=== PATIENT | male | born 1945 | race Two or more races ===

== ENCOUNTER 2019-12-14 16:52 | Inpatient (IN) | payer OTHER, MEDICAID ==
[~2019-12-14] VITALS: Ht 162.6 cm; Wt 73.9 kg
[2019-12-14] MEDS ORDERED: ONDANSETRON HCL 4 MG/2 ML VIAL IV ONE (18:45)
[2019-12-14] MEDS ORDERED: SODIUM CHLORIDE 0.9% 1,000 ML IV ONE (18:45)
[2019-12-14 20:22] LABS: Urine Bacteria FEW /hpf (None Seen); Urine Blood Negative /uL (Negative); Urine Specific Gravity 1.012 (1.001-1.035); Urine WBC 9 /hpf (0 - 3)
[2019-12-14 20:32] LABS: Basophils # (auto) 0 10 ^3/uL (0-0.2); Basophils % (auto) 1.1 % (0.0-2.0); Eosinophils # (auto) 0.1 10 ^3/uL (0-0.8); Eosinophils % (auto) 3.9 % (0.0-7.0); Hemoglobin 12.2 g/dL (13.5-17.5); Lymphocytes # (auto) 0.3 10 ^3/uL (0.4-5.4); Lymphocytes % (auto) 10.9 % (10.0-50.0); Mean Corpuscular Hemoglobin 33.5 pg (28.0-32.0); Mean Corpuscular Hgb Conc. 33.9 g/dL (32.0-36.0); Mean Corpuscular Volume 98.8 fL (80.0-100.0); Monocytes # (auto) 0.2 10 ^3/uL (0-1.3); Monocytes % (auto) 5.8 % (0.0-12.0); Neutrophils # (auto) 2.3 10 ^3/uL (1.6-8.6); Neutrophils % (auto) 78.3 % (37.0-80.0); Nucleated Red Blood Cells % 0.1 %; Platelet Count (auto) 84 10^3/uL (140-450); Red Blood Cells 3.64 10^6/uL (4.5-5.90); Red Cell Distribution Width 12.7 % (11.8-14.3); White Blood Cell 2.9 10^3/uL (4.4-10.8)
[2019-12-14 20:48] LABS: Albumin 3.8 g/dL (3.4-5.0); Calcium 8.1 mg/dL (8.5-10.1); Potassium 5.3 mmol/L (3.5-5.1)
[2019-12-14 20:51] LABS: BUN/Creatinine Ratio 13.8; Bilirubin, Total 0.5 mg/dL (0.2-1.0); Total Protein 8.2 g/dL (6.4-8.2)
[2019-12-15] MEDS ORDERED: CALCIUM GLUC 4.65meq/50ml D5AE 50 ML IV ONE (09:30)
[2019-12-15] MEDS ORDERED: SODIUM ZIRCONIUM CYCL 10 GM PAK PO ONE (09:30)
[2019-12-15] MEDS ORDERED: ALBUTEROL SULF 2.5 MG/0.5ML(0.5%) NEB SOLN NEB ONE (09:30)
[2019-12-15] MEDS ORDERED: InsuLIN REG 1unit/0.01ml Soln (100units/ml) IV ONE (09:30)
[2019-12-15] MEDS ORDERED: FUROSEMIDE 20 MG/2 ML VIAL IV ONE (09:30)
[2019-12-15] MEDS ORDERED: DEXTROSE (50%) 50ML SYRG IV ONE (09:30)
[2019-12-15] MEDS ORDERED: ONDANSETRON HCL 4 MG/2 ML VIAL IV PRN (09:45)
[2019-12-15] MEDS ORDERED: MORPHINE SULF INJ 2 MG/ML SYRINGE 1ML IV PRN (09:45)
[2019-12-15] MEDS ORDERED: SODIUM CHLORIDE 0.9% 1,000 ML IV ONE ×2 (09:45→22:15)
[2019-12-15] MEDS ORDERED: NITROGLYCERIN 0.4 MG SL TAB SL PRN (09:45)
[2019-12-15 10:32] LABS: Basophils # (auto) 0.1 10 ^3/uL (0-0.2); Basophils % (auto) 1.8 % (0.0-2.0); Eosinophils # (auto) 0.3 10 ^3/uL (0-0.8); Hematocrit 34.6 % (41.0-53.0); Hemoglobin 11.6 g/dL (13.5-17.5); Lymphocytes # (auto) 0.3 10 ^3/uL (0.4-5.4); Lymphocytes % (auto) 10.8 % (10.0-50.0); Mean Corpuscular Hemoglobin 33.4 pg (28.0-32.0); Mean Corpuscular Hgb Conc. 33.6 g/dL (32.0-36.0); Mean Corpuscular Volume 99.6 fL (80.0-100.0); Monocytes # (auto) 0.3 10 ^3/uL (0-1.3); Monocytes % (auto) 8.4 % (0.0-12.0); Neutrophils # (auto) 2.1 10 ^3/uL (1.6-8.6); Nucleated Red Blood Cells % 0.1 %; Platelet Count (auto) 75 10^3/uL (140-450); Red Blood Cells 3.47 10^6/uL (4.5-5.90); Red Cell Distribution Width 12.8 % (11.8-14.3); White Blood Cell 3.1 10^3/uL (4.4-10.8)
[2019-12-15] MEDS: SODIUM BICARBONATE 50ML VIAL 50 ML in D5W/SOD CHL 0.45% 1,000 ML IV SCH ×3 (10:42→22:47)
[2019-12-15 10:46] LABS: INR 1.22 (0.9-1.15); Partial Thromboplastin Time 31.8 sec (23.0-31.2)
[2019-12-15 10:49] LABS: Albumin 3.5 g/dL (3.4-5.0); Calcium 8.2 mg/dL (8.5-10.1); Magnesium 2.9 mg/dL (1.6-2.6); Potassium 5.4 mmol/L (3.5-5.1)
[2019-12-15 10:52] LABS: Bilirubin, Total 0.5 mg/dL (0.2-1.0); Total Protein 7.6 g/dL (6.4-8.2)
[2019-12-15 10:57] LABS: Amylase 111 U/L (25-115); Lipase 833 U/L (73-393)
[2019-12-15 10:59] LABS: Sodium Urine 71 mmol/L (40-220)
[2019-12-15 11:01] LABS: Protein, Urine 31.5 mg/dL (0.0-11.9)
[2019-12-15 11:02] LABS: Creatinine, Urine 108 mg/dL (30.0-125.0)
[2019-12-15 11:08] LABS: BUN/Creatinine Ratio 20.4
[2019-12-15 11:11] LABS: Uric Acid 17.4 mg/dL (3.5-7.2)
[2019-12-15 11:32] LABS: Phosphorus 9.6 mg/dL (2.5-4.90)
[2019-12-15] MEDS ORDERED: VANCOMYCIN PER PHARMACY 0 MG IV SCH (11:45)
[2019-12-15] MEDS ORDERED: VANCOMYCIN 1GM/250ML 250 ML IV ONE (11:45)
[2019-12-15] MEDS ORDERED: NOREPINEPHRINE 8 MG/250ML KIT 250 ML IV ONE (12:21)
[2019-12-15] MEDS: NOREPINEPHRINE 8 MG/250ML KIT 250 ML IV SCH (12:27)
[2019-12-15 12:53] LABS: Lactic Acid w/Reflex 2.3 mmol/L (0.4-2.0)
[2019-12-15] MEDS ORDERED: PIPERACILLIN-TAZOB 2.25GM 50 ML IV SCH (14:00)
[2019-12-15 14:17] LABS: Urine Bacteria MANY /hpf (None Seen); Urine Blood 2+ /uL (Negative); Urine Specific Gravity 1.013 (1.001-1.035); Urine WBC 4 /hpf (0 - 3)
[2019-12-15] MEDS: OCTREOTIDE ACETATE 100 MCG/ML VL SUBCUT SCH ×2 (14:21→22:46)
[2019-12-15] MEDS ORDERED: ERGOCALCIFEROL 50,000 UNIT(1.25MG) CAP PO SCH (21:30)
[2019-12-16] VITALS (48 sets, daily range): BP systolic 91–147; BP diastolic 38–80
--- NOTE | 2019-12-16 01:42 | NUR ---
CALLED ER FOR REPORT - ASSIGNED RN UNAVAILABLE AT THIS TIME
--- NOTE | 2019-12-16 02:30 | NUR ---
ICU ADMISSION: ADMITTED TO ICU. ASSESSMENT AND TRANSLATION ASSISTANCE PROVIDED BY CECILIA MEJIA. PATIENT PRIMARILY WELSH SPEAKING. A&OX4. NSR, HR 80s. NIBP > 100, MAP > 65 ON LEVOPHED GTT. LS CTA, EVEN AND UNLABORED BREATIHING. SpO2>95% ON RA. NO COUGH. ABD SOFT. HYPOACTIVE BS. LBM 10/20, NO DIARRHEA, NO BLOOD. REPORTS INTERMITTENT NAUSEA AND POOR APPETITE. MÁRQUEZ PATENT AND INTACT, DRAINING CLEAR YELLOW URINE. SKIN GROSSLY INTACT. 20 G PIV TO LEFT FOREARM, CDI AND PATENT BUT NO BLOOD RETURN, NO S/S OF INFILTRATION OR PHLEBITIS. 20 G PIV TO LEFT AC, CDI, AND PATENT WITH BLOOD RETURN, NO S/S OF INFILTRATION, EXTRAVASATION OR PHLEBITIS. DENIES CHEST PAIN, SHORTNESS OF BREATH, HEADACHE, DIZZINESS, NAUSEA/VOMITING, NUMBNESS AND TINGLING. REINFORCED POC. MAINTAINED PATIENT SAFETY: BED LOCKED AND IN THE LOWEST POSITION, FREQUENT VISUAL CHECKS, CALL LIGHT WITHIN REACH, BED ALARM ON.
[2019-12-16] MEDS ORDERED: SODIUM BICARBONATE 8.4 % INJ 50ML VIAL IV ONE (02:36)
[2019-12-16] MEDS: SODIUM BICARBONATE 50ML VIAL 50 ML in D5W/SOD CHL 0.45% 1,000 ML IV SCH ×2 (03:05→17:29)
--- NOTE | 2019-12-16 03:14 | NUR ---
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 WILL ENDORSE TO DAY SHIFT TO HAVE FAMILY COME TO PAYMENT MANAGER BELONGINGS. PATIENT'S BELONGINGS DOCUMENTED ON FORM IN CHART.
--- NOTE | 2019-12-16 04:15 | NUR ---
LEVOPHED GTT STOPPED
--- NOTE | 2019-12-16 04:30 | NUR ---
ROUNDED: SLEEPING. EVEN AND UNLABORED BREATHING. NO PAIN BEHAVIORS IDENTIFIED. NO SIGNS OF DISTRESS AT THIS TIME. VSS. WILL CONT CARE
[2019-12-16 04:39] LABS: Basophils # (auto) 0 10 ^3/uL (0-0.2); Basophils % (auto) 0.6 % (0.0-2.0); Eosinophils # (auto) 0 10 ^3/uL (0-0.8); Eosinophils % (auto) 0.8 % (0.0-7.0); Hematocrit 32.1 % (41.0-53.0); Hemoglobin 10.7 g/dL (13.5-17.5); Lymphocytes # (auto) 0.2 10 ^3/uL (0.4-5.4); Lymphocytes % (auto) 3.7 % (10.0-50.0); Mean Corpuscular Hemoglobin 33.3 pg (28.0-32.0); Mean Corpuscular Hgb Conc. 33.4 g/dL (32.0-36.0); Mean Corpuscular Volume 99.8 fL (80.0-100.0); Monocytes # (auto) 0.3 10 ^3/uL (0-1.3); Monocytes % (auto) 5.6 % (0.0-12.0); Neutrophils # (auto) 4.1 10 ^3/uL (1.6-8.6); Neutrophils % (auto) 89.3 % (37.0-80.0); Platelet Count (auto) 72 10^3/uL (140-450); Red Blood Cells 3.22 10^6/uL (4.5-5.90); Red Cell Distribution Width 12.6 % (11.8-14.3); White Blood Cell 4.6 10^3/uL (4.4-10.8)
[2019-12-16 05:05] LABS: Potassium 4.2 mmol/L (3.5-5.1)
[2019-12-16 05:16] LABS: Albumin 2.9 g/dL (3.4-5.0); BUN/Creatinine Ratio 29.2; Bilirubin, Direct 0.4 mg/dL (0-0.2); Bilirubin, Total 0.7 mg/dL (0.2-1.0); Calcium 7.4 mg/dL (8.5-10.1); Magnesium 1.8 mg/dL (1.6-2.6); Total Protein 6.4 g/dL (6.4-8.2)
[2019-12-16] MEDS: OCTREOTIDE ACETATE 100 MCG/ML VL SUBCUT SCH ×3 (05:34→21:30)
[2019-12-16 05:49] LABS: INR 1.37 (0.9-1.15); Partial Thromboplastin Time 35.9 sec (23.0-31.2)
--- NOTE | 2019-12-16 05:53 | NUR ---
ROUNDED: NO NEEDS AT THIS TIME. DENIES PAIN, CHEST PAIN, SHORTNESS OF BREATH, HEADACHE, DIZZINESS, N/V, NUMBNESS AND TINGLING. LEVOPHED CONTINUED OFF. VSS.
--- NOTE | 2019-12-16 07:29 | NUR ---
REPORT AND CARE ENDORSED TO CECILIA CHAUHAN
--- NOTE | 2019-12-16 07:30 | NUR ---
Open Assumed care of pt at this time. Pt alert and oriented times times four. Macedonian speaking mostly. Full assessment done see interventions. VSS. Will continue to monitor pt.
--- NOTE | 2019-12-16 10:51 | NUR ---
Faxed to [facility] [phone] order for Urgent Endocrinology referral as outpatient with in one week, spoke with Sarah [phone] and stated they received the clinical packet , and will give it to the CW
--- NOTE | 2019-12-16 11:00 | NUR ---
Dr. Rodriguez rounding on pt. No new orders at this time.
--- NOTE | 2019-12-16 11:39 | NUR ---
Nutrition Assessment Note please see attached link for complete assessment Est Energy needs BW 68 k-1700kcals (23-25 kcal/kgBW), Est Protein needs: 68-81 gms/day (1.0-1.2 gm/kgBW r/t ARF). Will continue to monitor and reassess prn. Addendum: 12/16/19 at [address] Amended: Links added.
--- NOTE | 2019-12-16 11:55 | NUR ---
Spoke with Dr. Abdon Walker regarding positive blood cultures. New order for vancomycin per pharmacy order and 1gm vanco now.
[2019-12-16] MEDS ORDERED: VANCOMYCIN 1GM/250ML 250 ML IV ONE (12:00)
[2019-12-16] MEDS ORDERED: VANCOMYCIN PER PHARMACY 0 MG IV SCH (12:00)
[2019-12-16] MEDS: NOREPINEPHRINE 8 MG/250ML KIT 250 ML IV SCH (12:30)
[2019-12-16] MEDS: SEVELAMER 800 MG TAB PO SCH ×2 (13:44→18:00)
--- NOTE | 2019-12-16 16:00 | NUR ---
PT helped patient out of bed to chair. Pt tolerated well.
--- NOTE | 2019-12-16 16:01 | NUR ---
Pt requesting to get up and use the bathroom, pt too weak to get up. bed olvera given and instructed to use bed olvera for now.
--- NOTE | 2019-12-16 17:26 | NUR ---
Pt ok to downgrade to tele since levophed has not been restarted and blood pressures stable per MD Suleman Walker
--- NOTE | 2019-12-16 19:13 | NUR ---
Care endorsed to night time nanny RN
--- NOTE | 2019-12-16 19:22 | NUR ---
ROUNDED: PATIENT UP TO CHAIR. TRANSLATION ASSISTANCE PROVIDED BY CECILIA MEJIA. PATIENT DENIES PAIN, CHEST PAIN, SHORTNESS OF BREATH, NAUSEA/VOMITING, NUMBNESS AND TINGLING. PATIENT REQUESTING TO REMAIN IN CHAIR. ADVISED TO CALL BEFORE GETTING UP. PATIENT ADVISED OF TELEMETRY ORDERS. PATIENT AGREEABLE AND VERBALIZED UNDERSTANDING. CALL LIGHT WITHIN REACH, PATIENT VISIBLE FROM NURSING STATION. WILL CONT CARE
--- NOTE | 2019-12-16 19:30 | NUR ---
OPENING NOTE: ASSESSMENT AND TRANSLATION ASSISTANCE PROVIDED BY CECILIA MEJIA. PATIENT PRIMARILY FRISIAN SPEAKING. A&OX4. NSR, HR 80s. NIBP > 100, MAP > 65 OFF OF LEVOPHED GTT. LS CTA, EVEN AND UNLABORED BREATIHING. SpO2>95% ON RA. NO COUGH. ABD SOFT. HYPOACTIVE BS. LBM 10/20, NO DIARRHEA, NO BLOOD. TOLERATING DIET BUT POOR APPETITE. MÁRQUEZ PATENT AND INTACT, DRAINING CLEAR YELLOW URINE. SKIN GROSSLY INTACT. 20 G PIV TO LEFT FOREARM, CDI AND PATENT BUT NO BLOOD RETURN, NO S/S OF INFILTRATION OR PHLEBITIS. 20 G PIV TO LEFT AC, CDI, AND PATENT WITH BLOOD RETURN, NO S/S OF INFILTRATION, EXTRAVASATION OR PHLEBITIS. DENIES CHEST PAIN, SHORTNESS OF BREATH, HEADACHE, DIZZINESS, NAUSEA/VOMITING, NUMBNESS AND TINGLING. REINFORCED POC. MAINTAINED PATIENT SAFETY: BED LOCKED AND IN THE LOWEST POSITION, FREQUENT VISUAL CHECKS, CALL LIGHT WITHIN REACH. ENCOURAGED PATIENT TO CALL PRIOR TO GETTING UP FROM CHAIR.
--- NOTE | 2019-12-16 20:42 | NUR ---
ROUNDED: REMAINS UP IN THE CHAIR. REQUESTING TO STAY IN THE CHAIR. DENIES PAIN. NO NEEDS AT THIS TIME. VSS OTHERWISE. ADVISED TO CALL BEFORE GETTING UP. REMAINS IN VIEW FROM NURSES' STATION.
--- NOTE | 2019-12-16 21:16 | NUR ---
FAMILY UPDATE: PATIENT'S DAUGHTER CALLED. SHE DOES NOT HAVE THE PASSWORD. TRANSFERRED CALL TO PORTABLE PHONE SO THAT DAUGHTER COULD SPEAK TO PATIENT. ADVISED DAUGHTER TO ASK THE PATIENT FOR THE PASSWORD. FARMER VEGETABLE HEARD PATIENT PROVIDE DAUGHTER WITH THE PASSWORD. PATIENT SPEAKING WITH AND UPDATING DAUGHTER.
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
--- NOTE | 2019-12-16 22:04 | NUR ---
ROUNDED: PATIENT REQUESTING TO REMAIN UP IN THE CHAIR. DENIES PAIN, SHORTNESS OF BREATH, DIZZINESS, NAUSEA/VOMITING, NUMBNESS AND TINGLING. VSS. ADVISED TO CALL WHEN READY TO GET BACK INTO BED
--- NOTE | 2019-12-16 22:05 | NUR ---
[facility] DRAW ORDER - NOTIFIED LAB OF NEED FOR DRAW
--- NOTE | 2019-12-16 22:38 | NUR ---
LEFT MESSAGE WITH PATIENT'S DAUGHTER - ADVISING ON ROOM CHANGE
--- NOTE | 2019-12-16 22:38 | NUR ---
REPORT CALLED TO CECILIA SOLER Addendum: 12/16/19 at 8548 by Katiana Ledesma RN RN MADE AWARE THAT CARDIO AND HEMATOLOGY CONSULT HAVE NOT BEEN CALLED YET
--- NOTE | 2019-12-16 23:07 | NUR ---
LEFT WITH ARPITA LEONARDO RN AND JASON THOMAS WITH ALL BELONGINGS
--- NOTE | 2019-12-16 23:11 | NUR ---
ASSUMED PATIENT CARE Received report from CYBER ANALYST, patient transferred to 291A with all personal belongings via wheelchair. Patient A/O x4, denies pain, distress, SOB. Patient tolerated transfer well. Bed in lowest locked position, call light within reach, side rails up x2, fall precautions in place. Will continue to monitor Q1H and PRN.
--- NOTE | 2019-12-16 23:20 | NUR ---
HEMATOLOGY AND CARDIOLOGY CONSULT: NOTIFIED [facility] OF NEED FOR CONSULTS TO BE CALLED
--- NOTE | 2019-12-16 23:30 | NUR ---
IV insertion IV access obtained, via clean sterile technique by inserting 22 gauge catheter at RFA after 2 attempts. IV secured properly. No trauma to site. Patient tolerated well. NOTE: Previous IVs leaking, both IVs removed, catheters intact. Pressure applied, patient tolerated well.
[2019-12-17] MEDS: SODIUM BICARBONATE 50ML VIAL 50 ML in D5W/SOD CHL 0.45% 1,000 ML IV SCH ×2 (01:25→12:01)
[2019-12-17 05:06] VITALS: BP 124/61
[2019-12-17] MEDS: OCTREOTIDE ACETATE 100 MCG/ML VL SUBCUT SCH ×3 (06:56→21:36)
[2019-12-17 07:39] LABS: Basophils # (auto) 0 10 ^3/uL (0-0.2); Eosinophils # (auto) 0.1 10 ^3/uL (0-0.8); Lymphocytes # (auto) 0.2 10 ^3/uL (0.4-5.4); Monocytes # (auto) 0.2 10 ^3/uL (0-1.3); Neutrophils # (auto) 2.1 10 ^3/uL (1.6-8.6); Neutrophils % (auto) 81.1 % (37.0-80.0); White Blood Cell 2.6 10^3/uL (4.4-10.8)
[2019-12-17 07:41] LABS: Basophils % (auto) 0.8 % (0.0-2.0); Eosinophils % (auto) 3.8 % (0.0-7.0); Hematocrit 29.7 % (41.0-53.0); Lymphocytes % (auto) 7.8 % (10.0-50.0); Mean Corpuscular Hemoglobin 33.4 pg (28.0-32.0); Mean Corpuscular Hgb Conc. 33.6 g/dL (32.0-36.0); Mean Corpuscular Volume 99.6 fL (80.0-100.0); Monocytes % (auto) 6.5 % (0.0-12.0); Platelet Count (auto) 60 10^3/uL (140-450); Red Blood Cells 2.98 10^6/uL (4.5-5.90); Red Cell Distribution Width 12.9 % (11.8-14.3)
--- NOTE | 2019-12-17 08:00 | NUR ---
OPENING SHIFT NOTE ASSUMED CARE OF PATIENT AWAKE AND ALERT. NO S/S OF DISTRESS NOTED OR COMPLAINTS OF PAIN. PATIENT UPDATED ON POC FOR THE DAY AND ALL QUESTIONS ANSWERED. BED IS IN LOWEST, LOCKED POSITION WITH SIDE RAILS UP 2 AND CALL LIGHT WITHIN REACH. WILL CONTINUE TO MONITOR Q1H AND PRN.
[2019-12-17 08:10] LABS: Albumin 2.6 g/dL (3.4-5.0); BUN/Creatinine Ratio 38.1; Calcium 7.4 mg/dL (8.5-10.1); Potassium 3.7 mmol/L (3.5-5.1)
[2019-12-17 08:12] LABS: Bilirubin, Total 0.9 mg/dL (0.2-1.0); Total Protein 6.3 g/dL (6.4-8.2)
[2019-12-17] MEDS: SEVELAMER 800 MG TAB PO SCH ×4 (08:17→17:36)
[2019-12-17 09:00] VITALS: BP 116/61
--- NOTE | 2019-12-17 09:20 | NUR ---
HEMATOLOGY CONSULT DR NAILS AT BEDSIDE CONSULTING WITH PATIENT.
[2019-12-17 12:50] VITALS: BP 118/57
[2019-12-17] MEDS ORDERED: VANCOMYCIN 1GM/250ML 250 ML IV ONE (13:00)
[2019-12-17] MEDS: SOD CHL 0.45% 1,000 ML IV SCH ×2 (13:09→22:13)
[2019-12-17 13:15] LABS: Hepatitis C Antibody Negative (Negative)
--- NOTE | 2019-12-17 13:42 | NUR ---
Assessment Patient is a 74-year-old male who is alert and oriented. Patient primary language is Iranian. Prior to admission patient lived home with his Rajani and functioned independently. Patient can care for his own ADLs. Per patient he will return home to his prior living arrangements post discharge and family will transport him home. Advised patient there is a social service consult for home health safety evaluation and walker. Per patient he has a walker for home use. Informed patient clinical information will be faxed to [facility]. Informed patient he has the right to participate in all discharge planning. Patient verbalized understanding and agreed to discharge plan. Per Darcy with [facility] patient has been accepted and service to start within 24-48hrs upon d/c day. Addendum: 12/17/19 at 1343 by GORAN HARTMAN SS Amended: Links added.
[2019-12-17 13:49] LABS: Hepatitis B Surface Antigen Negative (Negative)
[2019-12-17 16:50] VITALS: BP 121/62
--- NOTE | 2019-12-17 19:27 | NUR ---
Opening Shift Note Assumed care of patient after receiving report from Jennifer BROOKS. Patient is awake and alert with no S/S of distress/SOB or pain. Call light within reach, bed in lowest position locked x2 side rails up. Instructed on POC and to call for assist PRN, will continue to monitor for changes Q1hr and PRN.
[2019-12-17 22:00] VITALS: BP 137/66
[2019-12-18 05:00] VITALS: BP 104/61
[2019-12-18] MEDS: OCTREOTIDE ACETATE 100 MCG/ML VL SUBCUT SCH ×3 (06:09→21:47)
[2019-12-18 07:23] LABS: % Iron Saturation 16.5 % (20-55)
[2019-12-18 08:14] LABS: Ferritin 864.4 ng/mL (10-322)
[2019-12-18 08:42] VITALS: BP 104/56
--- NOTE | 2019-12-18 10:00 | NUR ---
RENAGEL GIVEN WITH MEAL. PT HAD LATE BREAKFAST.
[2019-12-18] MEDS: SEVELAMER 800 MG TAB PO SCH ×3 (10:04→18:00)
[2019-12-18] MEDS: cefTRIAXone 1GM/50ML D5W 50 ML IV SCH (12:31)
[2019-12-18] MEDS: SOD CHL 0.45% 1,000 ML IV SCH ×2 (12:31→18:15)
[2019-12-18 13:01] VITALS: BP 109/61
[2019-12-18 17:21] VITALS: BP 101/55
[2019-12-18] MEDS ORDERED: VANCOMYCIN 1GM/250ML 250 ML IV ONE (18:00)
--- NOTE | 2019-12-18 18:00 | NUR ---
PT STATED HE DOESN'T WANT TO EAT. RENAGEL NOT GIVEN.
--- NOTE | 2019-12-18 19:30 | NUR ---
Opening Shift Note Assumed care of patient, awake and alert. No S/S of distress/SOB or pain. Instructed on POC and to call for assist PRN. Bed in lowest locked position, call light within reach, side rails up x2, fall precautions in place. Will continue to monitor for changes Q1hr and PRN.
[2019-12-18 22:00] VITALS: BP 99/52
[2019-12-19] MEDS: SOD CHL 0.45% 1,000 ML IV SCH ×2 (00:10→14:15)
[2019-12-19 05:00] VITALS: BP 103/53
[2019-12-19 05:00] LABS: Basophils # (auto) 0 10 ^3/uL (0-0.2); Eosinophils # (auto) 0 10 ^3/uL (0-0.8); Lymphocytes # (auto) 0.3 10 ^3/uL (0.4-5.4); Monocytes # (auto) 0.2 10 ^3/uL (0-1.3); Neutrophils # (auto) 3.7 10 ^3/uL (1.6-8.6); White Blood Cell 4.3 10^3/uL (4.4-10.8)
[2019-12-19 05:04] LABS: Eosinophils % (auto) 0.4 % (0.0-7.0); Hematocrit 29.8 % (41.0-53.0); Hemoglobin 9.9 g/dL (13.5-17.5); Lymphocytes % (auto) 6.4 % (10.0-50.0); Mean Corpuscular Hemoglobin 33.3 pg (28.0-32.0); Mean Corpuscular Hgb Conc. 33.1 g/dL (32.0-36.0); Mean Corpuscular Volume 100.6 fL (80.0-100.0); Monocytes % (auto) 5.7 % (0.0-12.0); Neutrophils % (auto) 87.5 % (37.0-80.0); Platelet Count (auto) 61 10^3/uL (140-450); Red Blood Cells 2.96 10^6/uL (4.5-5.90); Red Cell Distribution Width 12.3 % (11.8-14.3)
[2019-12-19 05:29] LABS: Calcium 7.2 mg/dL (8.5-10.1)
[2019-12-19 05:32] LABS: BUN/Creatinine Ratio 39.1
[2019-12-19] MEDS: OCTREOTIDE ACETATE 100 MCG/ML VL SUBCUT SCH ×2 (05:41→14:00)
[2019-12-19 05:47] LABS: Potassium 2.9 mmol/L (3.5-5.1)
--- NOTE | 2019-12-19 05:50 | NUR ---
paged Dr.T Dave called regarding critical potassium of 2.9. Waiting for call back. Continue care.
--- NOTE | 2019-12-19 06:02 | NUR ---
returned call Dr. Sharla Dave returned call, updated on patient status and reason for call, new orders received and read back for verification. Continue care.
[2019-12-19] MEDS: POTASSIUM CHL 20MEQ/100ML 100 ML IV SCH ×3 (06:38→10:15)
[2019-12-19] MEDS: SEVELAMER 800 MG TAB PO SCH ×3 (08:00→18:00)
--- NOTE | 2019-12-19 08:00 | NUR ---
CORNELIO HELD. PT ONLY ATE 2 SPOONS OF OATMEAL. STATED NO APPETITE.
[2019-12-19 09:00] VITALS: BP 100/55
[2019-12-19] MEDS: cefTRIAXone 1GM/50ML D5W 50 ML IV SCH (09:33)
--- NOTE | 2019-12-19 11:20 | NUR ---
Nutrition Followup Note Wt 72.9kg Pt was sleeping with no family at bedside at time of rounds. Pt is with a Soft Diet with poor po intake aeb pt with 25% po intake x 2 per Rn note. Pt is with an KEENAN per MD note which is resolving per MD note. If pt po intake continues to be poor consider adding Ensure HP TID Est Energy needs BW 68 k-1700kcals (23-25 kcal/kgBW), Est Protein needs: 58-73g gms/day (0.8-1g/kg BW 72.9kg). Will continue to monitor and reassess prn. Labs: BUN 52H, Creat 1.33H, Alb 2.6L, K 2.9L, GLUC 114H BM: Pt with no BM noted per Rn note Skin: BS 15 mod risk, full details in resident care spec note PES: Altered nutrition related lab values r.t current chronic medical conidtion aeb elev RFT hyperglcyemia mod hypoalb Comments 1)advance diet as medically feasible 2) continue current plan of care Expected Outcomes/Goals: pt will have improved labs F/u mod 3-5 days
--- NOTE | 2019-12-19 12:56 | NUR ---
SPOKE TO DR HOLLY INFORMED MD OF THE NOTICEABLE INCREASE IN WEAKNESS ON PT, DECREASED APPETITE, AND NO BM SINCE THE . NEW ORDERS RECEIVED. ALSO, DR DAVIS IS PAGED PER MD'S REQUEST, AND P.T. PAGED TO RE-EVALUATE PT FOR DISCHARGE NEEDS. WAITING FOR CALL BACK FROM BOTH.
[2019-12-19 13:00] VITALS: BP 106/57
--- NOTE | 2019-12-19 13:00 | NUR ---
SPOKE TO DR GUZMAN. BACTRIM DOUBLE STRENGTH, PO BID X 14 DAYS FOR HOME RX. F/U IN [address] HOLLY IS AWARE.
--- NOTE | 2019-12-19 14:01 | NUR ---
Weekend operator weapon locating [id number] 12/19/19 I received a page from [facility] Exam Proctor Loretta regarding SNF order for this patient. Faxed order to [facility] ([phone]) per her request. Per Loretta, transport to SNF goes through [facility]. Per Loretta I can reach out to [facility].
--- NOTE | 2019-12-19 14:09 | NUR ---
I faxed SNF order/clinical packet to [facility].
--- NOTE | 2019-12-19 14:13 | NUR ---
I faxed request for SNF transportation to [facility].
--- NOTE | 2019-12-19 14:28 | NUR ---
I called [facility] Field Care Coordinator Yazan [phone] and left message requesting authorization for transportation to SNF.
--- NOTE | 2019-12-19 14:35 | NUR ---
I called [facility] [phone] and spoke with Deja, she did receive the clinical information-she will speak with her nursing information systems coordinator and give me a call back to let me know if they can accept this patient. I spoke with nurse Melvina and updated her on the status of the transfer. Per Melvina, patient is agreeable to SNF placement.
--- NOTE | 2019-12-19 15:20 | NUR ---
PT ATTEMPTED TO STAND HOWEVER, NOT ABLE TOO. PT HAS C/O R SHLDR PAIN AND PAIN TO RLE. PT NOT ABLE TO MAKE A CLOSED FIST TO R HAND AND NOT ABLE TO KNEE EXT ON R LEG WITHOUT USING L HAND FOR ASSISTANCE. PT WOULD BENEFIT FROM GOING TO A SNF/REHAB FACILITY AND NOT BE D/C'D TO HOME. PT LIVES WITH HIS SPOUSE WHO IS 88 Y/O Addendum: 12/19/19 at 1523 by Justa Carvalho PT Amended: Links added.
[2019-12-19] MEDS ORDERED: POTASSIUM CHL 20MEQ/100ML 100 ML IV SCH (15:45)
--- NOTE | 2019-12-19 15:55 | NUR ---
Patient will be going to [facility] room 2, nurse to call report to [phone]-I made nurse Hein aware that COVID test result needs to be faxed to [facility] [phone] (they will not accept patient if they are COVID +). Per CHOICE Teacher Aide Loretta she gave authorization to Deja at [facility]. I faxed transportation request form to [facility]-requesting hot die picker time of 2200 to transport to [facility]-nurse Hein made aware. I spoke with [facility]-they are able to accept the Gaby COVID test result as long as it is negative.
--- NOTE | 2019-12-19 16:00 | NUR ---
PT has been unable to GET UP OR walk with a walker TODAY. STRENGTH is markedly decreased. per P.T. patient had complained of pain but denies it whenever RN assess him for pain AND REFUSED ANY PAIN MEDICATION. PT ALWAYS STATES HE DOESN'T HAVE PAIN AND THAT HE'S OK.
[2019-12-19 16:39] VITALS: BP 110/60
--- NOTE | 2019-12-19 17:00 | NUR ---
REPORT GIVEN TO DEVORA HACKETT OF [facility]. ROXANN IS INFORMED OF ACCOUNT ASSISTANT TIME AT 2200. ROXANN REQUESTED TO LEAVE PT'S MÁRQUEZ IN FOR TRANSFER.
[2019-12-19] MEDS ORDERED: POTASSIUM CHL 20 Meq TABLET PO ONE (18:00)
--- NOTE | 2019-12-19 18:34 | NUR ---
COVID RESULT FAXED TO [facility] AT [phone]
[2019-12-19 18:35] VITALS: BP 98/44
[2019-12-19] MEDS ORDERED: POLYETHYLENE GLYCOL 17 GM PWDR PO ONE (18:45)
--- NOTE | 2019-12-19 19:10 | NUR ---
Opening Shift Note Assumed care of patient, awake and alert. No S/S of distress/SOB or pain. Instructed on POC and to call for assist PRN, will continue to monitor for changes Q1hr and PRN.
[2019-12-19 19:26] LABS: BUN/Creatinine Ratio 37.9; Calcium 7.5 mg/dL (8.5-10.1)
--- NOTE | 2019-12-19 19:30 | NUR ---
FAMILY IS AWARE OF PT'S TIME OF CERTIFIED DIALYSIS TECHNICIAN FOR TRANSFER TONIGHT.
--- NOTE | 2019-12-19 19:34 | NUR ---
MIRALAX WASN'T AVAILABLE IN THE [facility] AND [facility] UNTIL NOW. ENDORSED TO GARRETT BROOKS.
[2019-12-19 22:00] VITALS: BP 110/57
[2019-12-19] MEDS ORDERED: VANCOMYCIN 1GM/250ML 250 ML IV ONE (22:00)
--- NOTE | 2019-12-19 23:13 | NUR ---
TRANSFERED PATIENT JUST LEFT WITH [facility] BLS TRANSPORT. VSS DENIES PAIN.
== END 2019-12-19 23:41 | DRG 871 ==
LOC: ER 16:52 → EDBD 16:52 → OVERFLOW 16:53 → TELE-WESTW 12-16 02:20 → ICU WEST 12-16 02:27 → TELE-WESTW 12-16 23:45
PROVIDERS: ADMIT Internal Medicine; ATTEND Internal Medicine
PROC: 0T9B70Z Drainage of Bladder with Drainage Device, Via Natural or Artificial Opening (ICD-10-PCS; principal; 2019-12-15)
DX: A41.9 Sepsis, unspecified organism (principal); R65.21 Severe sepsis with septic shock; R57.1 Hypovolemic shock; N17.0 Acute kidney failure with tubular necrosis; E87.1 Hypo-osmolality and hyponatremia; D61.818 Other pancytopenia; K86.1 Other chronic pancreatitis; D68.9 Coagulation defect, unspecified; E27.40 Unspecified adrenocortical insufficiency; N39.0 Urinary tract infection, site not specified; R31.9 Hematuria, unspecified; Z20.828 Contact with and (suspected) exposure to other viral communicable diseases; E87.5 Hyperkalemia; I95.9 Hypotension, unspecified; N40.0 Benign prostatic hyperplasia without lower urinary tract symptoms; D69.6 Thrombocytopenia, unspecified; K52.9 Noninfective gastroenteritis and colitis, unspecified; K74.60 Unspecified cirrhosis of liver; E55.9 Vitamin D deficiency, unspecified; B96.89 Other specified bacterial agents as the cause of diseases classified elsewhere; E86.0 Dehydration; I25.10 Atherosclerotic heart disease of native coronary artery without angina pectoris; K57.10 Diverticulosis of small intestine without perforation or abscess without bleeding; Z80.3 Family history of malignant neoplasm of breast; Z79.899 Other long term (current) drug therapy; Z79.891 Long term (current) use of opiate analgesic; Z79.01 Long term (current) use of anticoagulants
CPT/HCPCS: 36415; 51702; 74176; 76705; 80048; 80053; 80076; 80202; 81001; 82150; 82306; 82533; 82565; 82570; 82607; 82728; 83036; 83540; 83550; 83605; 83615; 83690; 83735; 83880; 83970; 84100; 84132; 84156; 84300; 84436; 84443; 84550; 85025; 85045; 85610; 85730; 86038; 86703; 86803; 87040; 87077; 87081; 87086; 87088; 87186; 87340; 87426; 93306; 94640; 96360; 96361; 97110; 97530; G0378; J0610; J0696; J1815; J2405; J2543; J3480